=== PATIENT | male | born 1955 | race Caucasian/White ===

== ENCOUNTER → 2023-06-12 | Outpatient (CLI) | payer BC | LOC: M RAD 16:23 | PROVIDERS: ATTEND Internal Medicine | DX: Z12.2 Encounter for screening for malignant neoplasm of respiratory organs (principal); F17.211 Nicotine dependence, cigarettes, in remission ==

== ENCOUNTER → 2023-06-22 | Outpatient (CLI) | payer BC | LOC: M SLEEP 20:00 | PROVIDERS: ATTEND Nurse Practitioner Family | DX: G47.33 Obstructive sleep apnea (adult) (pediatric) (principal); G47.61 Periodic limb movement disorder ==

== ENCOUNTER → 2024-08-06 | Outpatient (CLI) | payer BC | LOC: M RAD 08:30 | PROVIDERS: ATTEND Internal Medicine | DX: F17.211 Nicotine dependence, cigarettes, in remission (principal) ==

== ENCOUNTER → 2025-06-20 | Outpatient (CLI) | payer BC | LOC: M WUC 14:59 | PROVIDERS: ATTEND Internal Medicine | DX: M54.31 Sciatica, right side (principal); M48.061 Spinal stenosis, lumbar region without neurogenic claudication ==